=== PATIENT | male | born 1990 | race Caucasian/White ===

== ENCOUNTER 2017-04-18 22:57 | Emergency (ER) | payer MEDICAID ==
[~2017-04-18] VITALS: Ht 190.5 cm; Wt 133.0 kg
[2017-04-18 23:02] VITALS: BP 152/103
[2017-04-18] MEDS ORDERED: ONDANSETRON ODT 4 MG PO ONE (23:30)
[2017-04-18] MEDS ORDERED: ONDANSETRON ODT 4 MG ONE (23:51)
== END 2017-04-19 00:18 | disposition left against medical advice (07) ==
LOC: ED 04-19 00:12
DX: K08.89 Other specified disorders of teeth and supporting structures (principal); Z53.21 Procedure and treatment not carried out due to patient leaving prior to being seen by health care provider
CPT/HCPCS: Q0162